=== PATIENT | female | born 2000 ===

== ENCOUNTER 2022-12-16 00:33 | Emergency (ER) | payer SELFPAY ==
[~2022-12-16] VITALS: Ht 165 cm; Wt 55.8 kg
--- NOTE | 2022-12-16 01:01 | ED Abdominal Pain ---
General Chief Complaint: Abdominal/GI Problems Stated Complaint: RT SIDE PAIN,VOMITING Nursing Triage Note: c/o sharp intermittant right sided abdominal pain x1hr Source of Information: Patient Exam Limitations: No Limitations History of Present Illness Date Seen by Provider: Dec 16, 2022 Time Seen by Provider: 01:01 Initial Comments Patient is a 22-year-old female who presents to the emergency room with a chief complaint of severe right-sided abdominal pain. Patient states its been going on for about an hour, described as sharp. She states nothing makes it any better or any worse. She denies fevers, chills. She is short of breath due to her "anxiety". No productive cough. No diarrhea, black or bloody stools. No dysuria, urgency or frequency. No abnormal vaginal discharge. Last menstrual cycle was sometime in November. She is on control and does not believe there is any way she could be . She has never had pain like this before. No prior abdominal surgeries. She has not taken anything for the pain. On initial examination of the patient she is curled up on her left side in a position, crying holding her right side. Timing/Duration: 1 Hour Severity/Quality: Severe, Sharp Location: Other (Right-sided abdominal pain) Radiation: No Radiation Activities at Onset: None Associated Symptoms: Nausea/Vomiting Allergies and Home Medications Allergies Coded Allergies: No Known Drug Allergies (Unverified , 12/16/22) Patient Home Medication List Home Medication List Reviewed: Yes No Active Prescriptions or Reported Meds Review of Systems Review of Systems Constitutional: see HPI EENTM: No Symptoms Reported Respiratory: No Symptoms Reported Cardiovascular: No Symptoms Reported Gastrointestinal: Abdominal Pain, Nausea Genitourinary: No Symptoms Reported Musculoskeletal: no symptoms reported Skin: no symptoms reported Psychiatric/Neurological: Anxiety All Other Systems Reviewed Negative Unless Noted: Yes Past Cjlfmeo-Tuajop-Lboqfk Hx Patient Social History Tobacco Use?: No Substance use?: Yes Substance type: Marijuana Alcohol Use?: No Pt feels they are or have been: No Immunizations Up To Date First/Initial COVID19 Vaccinat: x2 Past Medical History Surgery/Hospitalization HX: denies Last Menstrual Period: Dec 01, 2022 Physical Exam Vital Signs Vital Signs - First Documented 12/16/22 00:40 Temp 36.7 Pulse 114 Resp 22 B/P (MAP) 130/92 (105) Pulse Ox 100 O2 Delivery Room Air Capillary Refill : Height/Weight/BMI Height: '" Weight: lbs. oz. kg; 20.00 BMI Method: General Appearance: WD/WN, moderate distress, other (Crying) HEENT: PERRL/EOMI Respiratory: lungs clear, normal breath sounds, no respiratory distress, no accessory muscle use Cardiovascular: regular rate, rhythm Gastrointestinal: normal bowel sounds, soft, tenderness (Right upper and lower quadrant, left lower quadrant) Neurologic/Psychiatric: alert, oriented x 3, other (Anxious, crying) Skin: normal color, warm/dry Progress/Results/Core Measures Results/Orders Lab Results Laboratory Tests Test 12/16/22 00:45 12/16/22 01:20 Range/Units White Blood Count 10.4 4.3-11.0 10^3/uL Red Blood Count 4.58 3.80-5.11 10^6/uL Hemoglobin 12.5 11.5-16.0 g/dL Hematocrit 39 35-52 % Mean Corpuscular Volume 85 80-99 fL Mean Corpuscular Hemoglobin 27 25-34 pg Mean Corpuscular Hemoglobin Concent 32 32-36 g/dL Red Cell Distribution Width 14.4 10.0-14.5 % Platelet Count 293 130-400 10^3/uL Mean Platelet Volume 12.1 9.0-12.2 fL Immature Granulocyte % (Auto) 0 % Neutrophils (%) (Auto) 49 42-75 % Lymphocytes (%) (Auto) 42 12-44 % Monocytes (%) (Auto) 7 0-12 % Eosinophils (%) (Auto) 2 0-10 % Basophils (%) (Auto) 1 0-10 % Neutrophils # (Auto) 5.1 1.8-7.8 10^3/uL Lymphocytes # (Auto) 4.4 H 1.0-4.0 10^3/uL Monocytes # (Auto) 0.7 0.0-1.0 10^3/uL Eosinophils # (Auto) 0.2 0.0-0.3 10^3/uL Basophils # (Auto) 0.1 0.0-0.1 10^3/uL Immature Granulocyte # (Auto) 0.0 0.0-0.1 10^3/uL Sodium Level 144 135-145 MMOL/L Potassium Level 3.3 L 3.6-5.0 MMOL/L Chloride Level 112 H 98-107 MMOL/L Carbon Dioxide Level 19 L 21-32 MMOL/L Anion Gap 13 5-14 MMOL/L Blood Urea Nitrogen 8 7-18 MG/DL Creatinine 0.66 0.60-1.30 MG/DL Estimat Glomerular Filtration Rate 127 BUN/Creatinine Ratio 12 Glucose Level 115 H 70-105 MG/DL Calcium Level 8.9 8.5-10.1 MG/DL Corrected Calcium 8.7 8.5-10.1 MG/DL Total Bilirubin 0.5 0.1-1.0 MG/DL Aspartate Amino Transf (AST/SGOT) 10 5-34 U/L Alanine Aminotransferase (ALT/SGPT) 6 0-55 U/L Alkaline Phosphatase 102 40-136 U/L Total Protein 7.4 6.4-8.2 GM/DL Albumin 4.2 3.2-4.5 GM/DL Lipase 42 8-78 U/L Serum Test, Qualitative NEGATIVE NEGATIVE Serum Alcohol 92 H <10 MG/DL Urine Color YELLOW Urine Clarity CLEAR Urine pH 6.5 5-9 Urine Specific [place] 1.015 L 1.016-1.022 Urine Protein NEGATIVE NEGATIVE Urine Glucose (UA) NEGATIVE NEGATIVE Urine Ketones NEGATIVE NEGATIVE Urine Nitrite NEGATIVE NEGATIVE Urine Bilirubin NEGATIVE NEGATIVE Urine Urobilinogen 0.2 < = 1.0 MG/DL Urine Leukocyte Esterase TRACE H NEGATIVE Urine RBC (Auto) NEGATIVE NEGATIVE Urine RBC NONE /HPF Urine WBC RARE /HPF Urine Squamous Epithelial Cells 0-2 /HPF Urine Crystals NONE /LPF Urine Bacteria NEGATIVE /HPF Urine Casts NONE /LPF Urine Mucus NEGATIVE /LPF Urine Culture Indicated NO My Orders Orders - BOBBY FENG MD Ed Iv/Invasive Line Start (12/16/22 01:05) Cbc With Automated Diff (12/16/22 01:05) Comprehensive Metabolic Panel (12/16/22 01:05) Lipase (12/16/22 01:05) Ua Culture If Indicated (12/16/22 01:05) Hcg,Qualitative Serum (12/16/22 01:05) Ns Iv 1000 Ml (Sodium Chloride 0.9%) (12/16/22 01:05) Ketorolac Injection (Toradol Injection) (12/16/22 01:15) Ondansetron Injection (Zofran Injectio (12/16/22 01:15) Ct Abd/Pelvis Wo(Kidney Stone) (12/16/22 02:17) Alcohol (12/16/22 03:19) Pantoprazole Injection (Protonix Injecti (12/16/22 03:30) Hyoscyamine Sl Tablet (Levsin Sl Tablet) (12/16/22 03:30) Rx-Ondansetron Po (Rx-Zofran Po) (12/16/22 03:30) Medications Given in ED Current Medications Medications Dose Ordered Sig/Dudley Route Start Time Stop Time Status Last Admin Dose Admin Ketorolac Tromethamine 15 mg ONCE ONCE IVP 12/16/22 01:15 12/16/22 01:16 DC 12/16/22 01:15 15 MG Ondansetron HCl 8 mg ONCE ONCE IVP 12/16/22 01:15 12/16/22 01:16 DC 12/16/22 01:15 8 MG Vital Signs/I&O 12/16/22 12/16/22 00:40 03:36 Temp 36.7 36.5 Pulse 114 75 Resp 22 16 B/P (MAP) 130/92 (105) 95/65 Pulse Ox 100 98 O2 Delivery Room Air Room Air Blood Pressure Mean: 105 Progress Progress Note #1: Time: 02:17 Progress Note pain improved. re-examined, tenderness in the right flank with voluntary guarding; will CT renal stone protocol Progress Note #2: Time: 03:24 Progress Note patient re-evaluated; pain a "6". Friend at bedside states she had some "cayman violetta's" alcohol tonight, pain started afterward. Will add some protonix and levsin. CT shows no evidence of stone. Likely gastritis due to the alcohol intake tonight. Labs reviewed - CBC is normal, CHem 12 normal. UA normal, test normal. etoh pending. Diagnostic Imaging Diagonstic Imaging: CT Comments CT abdomen pelvis renal stone protocol, independently interpreted by me, no acute findings, no kidney stones Departure Impression Primary Impression: Abdominal pain Qualified Codes: R10.9 - Unspecified abdominal pain Additional Impression: Gastritis Qualified Codes: K29.20 - Alcoholic gastritis without bleeding Disposition: HOME, SELF-CARE Condition: Improved Departure-Patient Inst. Decision time for Depature: 03:28 Referrals: NO,LOCAL PHYSICIAN (PCP/Family) Primary Care Physician Patient Instructions: Gastritis ED Add. Discharge Instructions: You should get some generic pepcid from [facility], take one tablet twice a day for the next week. [place] diet tomorrow and then Saturday slowly advance your diet as tolerated. Zofran, (nausea medication) take one every 8 hours as needed for upset stomach. If you develop a fever, worsening pain with vomiting, please return to the Emergency Department for re-evaluation. Follow up with your primary care doctor as needed. Scripts No Active Prescriptions or Reported Meds BOBBY FENG MD Dec 16, 2022 01:01
[2022-12-16] MEDS ORDERED: NS IV 1000 ML 1,000 ML IV STA (01:05)
[2022-12-16] MEDS ORDERED: ONDANSETRON 4 MG/2 ML (SDV) Z0FRAN IVP ONE (01:15)
[2022-12-16] MEDS ORDERED: KETOROLAC 15 MG/ML VIAL IVP ONE (01:15)
[2022-12-16 01:25] LABS: BASOPHILS # (AUTO) 0.1 10^3/uL (0.0-0.1); BASOPHILS % (AUTO) 1 % (0-10); EOSINOPHILS # (AUTO) 0.2 10^3/uL (0.0-0.3); EOSINOPHILS % (AUTO) 2 % (0-10); HEMATOCRIT 39 % (35-52); HEMOGLOBIN 12.5 g/dL (11.5-16.0); LYMPHOCYTES # (AUTO) 4.4 10^3/uL (1.0-4.0); LYMPHOCYTES % (AUTO) 42 % (12-44); MEAN CORPUSCULAR HEMOGLOBIN 27 pg (25-34); MEAN CORPUSCULAR HGB CONC 32 g/dL (32-36); MEAN CORPUSCULAR VOLUME 85 fL (80-99); MEAN PLATELET VOLUME 12.1 fL (9.0-12.2); MONOCYTES # (AUTO) 0.7 10^3/uL (0.0-1.0); MONOCYTES % (AUTO) 7 % (0-12); NEUTROPHILS # (AUTO) 5.1 10^3/uL (1.8-7.8); NEUTROPHILS % (AUTO) 49 % (42-75); PLATELET COUNT 293 10^3/uL (130-400); WHITE BLOOD COUNT 10.4 10^3/uL (4.3-11.0)
[2022-12-16 01:29] LABS: ALBUMIN 4.2 GM/DL (3.2-4.5); POTASSIUM 3.3 MMOL/L (3.6-5.0)
[2022-12-16 01:31] LABS: CALCIUM 8.9 MG/DL (8.5-10.1)
[2022-12-16 01:32] LABS: TOTAL PROTEIN 7.4 GM/DL (6.4-8.2)
[2022-12-16 01:34] LABS: BILIRUBIN,TOTAL 0.5 MG/DL (0.1-1.0)
[2022-12-16 01:35] LABS: CREATININE SERUM 0.66 MG/DL (0.60-1.30)
[2022-12-16 01:35] LABS: BILIRUBIN,URINE NEGATIVE (NEGATIVE); CLARITY,URINE CLEAR; COLOR,URINE YELLOW; GLUCOSE, URINE (UA) NEGATIVE (NEGATIVE); KETONES,URINE NEGATIVE (NEGATIVE); LEUKOCYTE ESTERASE ,URINE TRACE (NEGATIVE); NITRITE,URINE NEGATIVE (NEGATIVE); PH,URINE 6.5 (5-9); PROTEIN,URINE NEGATIVE (NEGATIVE)
[2022-12-16 01:47] LABS: BACTERIA,URINE NEGATIVE /HPF; SQUAMOUS EPITHELIAL CELL,UR 0-2 /HPF; WBC,URINE RARE /HPF
[2022-12-16] MEDS ORDERED: RX-ONDANSETRON 4 MG ODT (ZOFRAN) PPK #4 PO STA (03:30)
[2022-12-16] MEDS ORDERED: HYOSCYAMINE 0.125 MG (LEVSIN) TAB PO ONE (03:30)
[2022-12-16] MEDS ORDERED: PANTOPRAZOLE 40 MG (PROTONIX) VIAL IV ONE (03:30)
[2022-12-16 03:36] VITALS: BP 95/65
--- NOTE | 2022-12-16 06:17 | Diagnostic Imaging Report ---
EXAMINATION: CT abdomen and pelvis without contrast. TECHNIQUE: Multiple contiguous axial images were obtained through the abdomen and pelvis without the use of intravenous contrast. All CT scans use one or more of the following dose optimizing techniques: automated exposure control, MA and/or KvP adjustment based on patient size and exam type or iterative reconstruction. HISTORY: Flank pain, kidney stone suspected COMPARISON: None available. FINDINGS: Lung bases: The lung bases are clear. Solid organs: The liver is normal. The gallbladder is normal. There is no biliary ductal dilation. Pancreas is normal. Spleen is normal. Adrenal glands are normal. The kidneys are normal without visualized calculus or hydronephrosis. Bowel: The stomach and small bowel are normal without obstruction. The colon is normal. There are no secondary signs of acute appendicitis. Peritoneum: There is no intraperitoneal free fluid or free air. No suspicious lymphadenopathy. Vasculature: Normal without aneurysm. Musculoskeletal: No suspicious osseous lesion or compression fracture. Pelvis: An IUD is present within the uterus with the limb extending to the surface of the myometrium. The urinary bladder is normal. IMPRESSION: 1. No visualized renal calculus or hydronephrosis. 2. No other acute abnormality in the abdomen or pelvis. 3. Possible abnormal positioning of the IUD and possible penetration of the limb through the myometrium. Consider correlation with pelvic ultrasound. 4. Agree with preliminary interpretation. Dictated by: Dictated on workstation # [id number]
== END 2022-12-16 03:38 | disposition home or self-care (01) ==
LOC: ER 00:37
DX: K29.70 Gastritis, unspecified, without bleeding (principal)
CPT/HCPCS: 74176; 80053; 81000; 83690; 84703; 85025; 99284; G0480; 36415; 80320

== ENCOUNTER 2023-05-02 10:00 | Emergency (ER) | payer OTHER ==
[~2023-05-02] VITALS: Ht 167 cm; Wt 63.0 kg
--- NOTE | 2023-05-02 10:24 | ED Lower Extremity ---
General Chief Complaint: Lower Extremity Stated Complaint: LT FOOT INJ | STRUCK BY PIECE OF METAL | Nursing Triage Note: PT TO RM 9 BY WITH C/O L FOOT PAIN AFTER A METAL FIXTURE FELL ON FOOT AT WORK Source: patient Exam Limitations: no limitations History of Present Illness Date Seen by Provider: May 02, 2023 Time Seen by Provider: 10:14 Initial Comments 22-year-old female presents for left foot injury sustained at work. She states this will be a work comp injury. 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 She has pain to the medial aspect of her left foot at the area of bruising and swelling. She has been able to bear weight but states it hurts to do so. No other injuries. All other systems reviewed and negative except documented per HPI. Voice recognition software was used to help create this chart Allergies and Home Medications Allergies Coded Allergies: No Known Drug Allergies (Unverified , 12/16/22) Patient Home Medication List Home Medication List Reviewed: Yes No Active Prescriptions or Reported Meds Review of Systems Constitutional: see HPI Past Upatkrs-Xvvtlq-Pdfgxg Hx Patient Social History Tobacco Use?: No Use of E-Cig and/or Vaping dev: Yes E-Cig or Vaping type used: Nicotine Substance use?: Yes Substance type: Marijuana Alcohol Use?: No Pt feels they are or have been: No Immunizations Up To Date First/Initial COVID19 Vaccinat: x2 Second COVID19 Vaccination Rajesh: x2 Third COVID19 Vaccination Date: x2 Past Medical History Surgery/Hospitalization HX: denies Last Menstrual Period: Apr 08, 2023 Physical Exam Vital Signs Vital Signs - First Documented 05/02/23 10:08 Temp 36.6 Pulse 80 Resp 17 B/P (MAP) 120/85 (97) Pulse Ox 99 O2 Delivery Room Air Capillary Refill : Height, Weight, BMI Height: '" Weight: lbs. oz. kg; 22.00 BMI Method: General Appearance: WD/WN, no apparent distress Knees: bilateral knee non-tender, bilateral knee normal inspection, bilateral knee normal range of motion Ankles: bilateral ankle non-tender, bilateral ankle normal inspection, bilateral ankle normal range of motion Feet: left foot other (Bruising and very mild swelling at a focal point to the medial aspect of her left foot on the extensor surface. Neurovascular and se nsory intact.) Skin: ecchymosis Progress/Results/Core Measures Results/Orders My Orders Orders - ARVIN SHELL DO Foot, Left, 3 Views (05/02/23 10:20) Vital Signs/I&O 05/02/23 10:08 Temp 36.6 Pulse 80 Resp 17 B/P (MAP) 120/85 (97) Pulse Ox 99 O2 Delivery Room Air Blood Pressure Mean: 97 Departure Communication (Admissions) Patient is hemodynamically stable neurovascular and sensory intact. I have independently reviewed x-rays and do not see any acute fracture, dislocation or soft tissue abnormality. Impression Primary Impression: Contusion of left foot Qualified Codes: S90.32XA - Contusion of left foot, initial encounter Disposition: HOME, SELF-CARE Condition: Stable Departure-Patient Inst. Referrals: NO,LOCAL PHYSICIAN (PCP/Family) Primary Care Physician Patient Instructions: Minor Contusion ED Add. Discharge Instructions: Use ibuprofen and Tylenol as needed for pain. bear weight as tolerated. Return to the emergency department for any severe concerns All discharge instructions reviewed with patient and/or family. Voiced understanding. Scripts No Active Prescriptions or Reported Meds ARVIN SHELL DO May 02, 2023 10:23
--- NOTE | 2023-05-02 10:41 | Diagnostic Imaging Report ---
INDICATION: Left foot pain after a metal fixtures fell on foot at work. TECHNIQUE: 3 views of the left foot CORRELATION STUDY: None FINDINGS: The osseous structures of the foot are intact. Joint spaces are maintained. Alignment anatomic. Soft tissues appearing unremarkable. IMPRESSION: 1. Negative for acute findings of the foot. Dictated by: Dictated on workstation # [id number]
[2023-05-02 10:56] VITALS: BP 120/85
== END 2023-05-02 10:58 | disposition home or self-care (01) ==
LOC: EDUNIT# 10:00 → ER 10:03
DX: S90.32XA Contusion of left foot, initial encounter (principal); F17.290 Nicotine dependence, other tobacco product, uncomplicated; W20.8XXA Other cause of strike by thrown, projected or falling object, initial encounter; Y99.0 Civilian activity done for income or pay
CPT/HCPCS: 73630

== ENCOUNTER 2023-05-23 19:47 | Emergency (ER) | payer SELFPAY ==
[~2023-05-23] VITALS: Ht 172 cm; Wt 74.0 kg
[2023-05-23] MEDS ORDERED: NS IV 1000 ML 1,000 ML IV SCH (20:15)
[2023-05-23 20:19] LABS: BASOPHILS % (AUTO) 1 % (0-10); EOSINOPHILS # (AUTO) 0.1 10^3/uL (0.0-0.3); EOSINOPHILS % (AUTO) 1 % (0-10); HEMATOCRIT 37 % (35-52); HEMOGLOBIN 11.6 g/dL (11.5-16.0); LYMPHOCYTES % (AUTO) 12 % (12-44); MEAN CORPUSCULAR HEMOGLOBIN 27 pg (25-34); MEAN CORPUSCULAR HGB CONC 31 g/dL (32-36); MEAN CORPUSCULAR VOLUME 85 fL (80-99); MEAN PLATELET VOLUME 11.8 fL (9.0-12.2); MONOCYTES # (AUTO) 0.9 10^3/uL (0.0-1.0); MONOCYTES % (AUTO) 11 % (0-12); NEUTROPHILS # (AUTO) 6.4 10^3/uL (1.8-7.8); NEUTROPHILS % (AUTO) 75 % (42-75); PLATELET COUNT 276 10^3/uL (130-400); WHITE BLOOD COUNT 8.5 10^3/uL (4.3-11.0)
--- NOTE | 2023-05-23 20:20 | ED General ---
General Stated Complaint: FAINTING, VOMITING, COUGH History of Present Illness Date Seen by Provider: May 23, 2023 Time Seen by Provider: 20:05 Initial Comments 22 year old female with weakness over the last 3-4 hours. She worked outside, picking up shingles all day. Reports eating but vomited 1-2 times. No nausea now. She became weak and required a friend to help her walk. no falls. She denies history of DM, cardiac or respiratory problems. Reports feeling warm earlier today but did not check her temperature. She vapes daily and uses marijuana approximately once a week, she got off work at 1800 and drank alcohol prior to coming to ED. She reports taking Tylenol at noon today.She reports having COVID approximately 3 years ago she has received the vaccines and one booster. Timing/Duration: 4-6 Hours Severity: Mild Associated Systoms: No Chest Pain; Cough; No Diaphoresis; Fever/Chills, Headaches, Loss of Appetite, Malaise, Nausea/Vomiting; No Rash, No Seizure, No Shortness of Air, No Syncope; Weakness (CHELLY ONEIL) Allergies and Home Medications Allergies Coded Allergies: No Known Drug Allergies (Unverified , 12/16/22) Patient Home Medication List Home Medication List Reviewed: Yes (CHELLY ONEIL) No Active Prescriptions or Reported Meds Review of Systems Review of Systems Constitutional: see HPI, malaise, weakness EENTM: see HPI, no symptoms reported Respiratory: see HPI, cough; No short of breath Cardiovascular: no symptoms reported, see HPI Gastrointestinal: see HPI; No abdominal pain, No nausea; vomiting Genitourinary: no symptoms reported, see HPI Musculoskeletal: no symptoms reported, see HPI (CHELLY ONEIL) All Other Systems Reviewed Negative Unless Noted: Yes (CHELLY ONEIL) Past Kklrxjm-Ugjmgp-Labsot Hx Immunizations Up To Date First/Initial COVID19 Vaccinat: x2 Second COVID19 Vaccination Rajesh: x2 Third COVID19 Vaccination Date: x2 (CHELLY ONEIL) Past Medical History Surgery/Hospitalization HX: denies (CHELLY ONEIL) Family Medical History Reviewed Nursing Family Hx (CHELLY ONEIL) Physical Exam Vital Signs Vital Signs - First Documented 05/23/23 20:00 Temp 37.6 Pulse 118 Resp 20 B/P (MAP) 115/84 (94) Pulse Ox 100 O2 Delivery Room Air (DANIELLA,EVA K DO) Vital Signs Capillary Refill : (CHELLY ONEIL) Height, Weight, BMI Height: '" Weight: lbs. oz. kg; 22.00 BMI Method: General Appearance: Mild Distress HEENT: PERRL/EOMI, TMs Normal, Normal ENT Inspection, Pharynx Normal, Moist M ucous Membranes Neck: Full Range of Motion, Normal Inspection, Non Tender, Supple Respiratory: Chest Non Tender, Lungs Clear, Normal Breath Sounds Cardiovascular: Regular Rate, Rhythm, No Edema, No Murmur, Normal Peripheral Pulses Gastrointestinal: Normal Bowel Sounds, Non Tender, Soft Extremity: Normal Capillary Refill, Normal Inspection, Normal Range of Motion, No Pedal Edema Neurologic/Psychiatric: Alert, Oriented x3, No Motor/Sensory Deficits, Normal Mood/Affect Skin: Normal Color, Warm/Dry; No Cool, No Diaphoresis (CHELLY ONEIL) Progress/Results/Core Measures Suspected Sepsis SIRS Temperature: Pulse: Respiratory Rate: Laboratory Tests 05/23/23 20:10: White Blood Count 8.5 Blood Pressure / Mean: Laboratory Tests 05/23/23 20:10: Creatinine 0.75, Platelet Count 276, Total Bilirubin 0.6 (CHELLY ONEIL) Results/Orders Lab Results Laboratory Tests Test 05/23/23 20:10 05/23/23 20:11 05/23/23 20:43 Range/Units White Blood Count 8.5 4.3-11.0 10^3/uL Red Blood Count 4.36 3.80-5.11 10^6/uL Hemoglobin 11.6 11.5-16.0 g/dL Hematocrit 37 35-52 % Mean Corpuscular Volume 85 80-99 fL Mean Corpuscular Hemoglobin 27 25-34 pg Mean Corpuscular Hemoglobin Concent 31 L 32-36 g/dL Red Cell Distribution Width 13.8 10.0-14.5 % Platelet Count 276 130-400 10^3/uL Mean Platelet Volume 11.8 9.0-12.2 fL Immature Granulocyte % (Auto) 1 % Neutrophils (%) (Auto) 75 42-75 % Lymphocytes (%) (Auto) 12 12-44 % Monocytes (%) (Auto) 11 0-12 % Eosinophils (%) (Auto) 1 0-10 % Basophils (%) (Auto) 1 0-10 % Neutrophils # (Auto) 6.4 1.8-7.8 10^3/uL Lymphocytes # (Auto) 1.0 1.0-4.0 10^3/uL Monocytes # (Auto) 0.9 0.0-1.0 10^3/uL Eosinophils # (Auto) 0.1 0.0-0.3 10^3/uL Basophils # (Auto) 0.0 0.0-0.1 10^3/uL Immature Granulocyte # (Auto) 0.0 0.0-0.1 10^3/uL Sodium Level 141 135-145 MMOL/L Potassium Level 3.3 L 3.6-5.0 MMOL/L Chloride Level 108 H 98-107 MMOL/L Carbon Dioxide Level 22 21-32 MMOL/L Anion Gap 11 5-14 MMOL/L Blood Urea Nitrogen 12 7-18 MG/DL Creatinine 0.75 0.60-1.30 MG/DL Estimat Glomerular Filtration Rate 115 BUN/Creatinine Ratio 16 Glucose Level 93 70-105 MG/DL Calcium Level 9.0 8.5-10.1 MG/DL Corrected Calcium 8.8 8.5-10.1 MG/DL Total Bilirubin 0.6 0.1-1.0 MG/DL Aspartate Amino Transf (AST/SGOT) 14 5-34 U/L Alanine Aminotransferase (ALT/SGPT) 13 0-55 U/L Alkaline Phosphatase 117 40-136 U/L Total Protein 7.4 6.4-8.2 GM/DL Albumin 4.3 3.2-4.5 GM/DL Serum Alcohol 25 H <10 MG/DL Influenza Type A (RT-PCR) Not Detected Not Detecte Influenza Type B (RT-PCR) Not Detected Not Detecte SARS-CoV-2 RNA (RT-PCR) Detected H Not Detecte Glucometer 90 70-110 MG/DL Urine Color YELLOW Urine Clarity CLEAR Urine pH 7.0 5-9 Urine Specific [place] 1.020 1.016-1.022 Urine Protein NEGATIVE NEGATIVE Urine Glucose (UA) NEGATIVE NEGATIVE Urine Ketones NEGATIVE NEGATIVE Urine Nitrite NEGATIVE NEGATIVE Urine Bilirubin NEGATIVE NEGATIVE Urine Urobilinogen 0.2 < = 1.0 MG/DL Urine Leukocyte Esterase TRACE H NEGATIVE Urine RBC (Auto) NEGATIVE NEGATIVE Urine RBC 0-2 /HPF Urine WBC 2-5 /HPF Urine Squamous Epithelial Cells 25-50 H /HPF Urine Crystals PRESENT H /LPF Urine Amorphous Sediment RARE PRITESH URATES H /LPF Urine Bacteria TRACE /HPF Urine Casts NONE /LPF Urine Mucus SMALL H /LPF Urine Culture Indicated NO Urine Opiates Screen NEGATIVE NEGATIVE Urine Oxycodone Screen NEGATIVE NEGATIVE Urine Methadone Screen NEGATIVE NEGATIVE Urine Propoxyphene Screen NEGATIVE NEGATIVE Urine Barbiturates Screen NEGATIVE NEGATIVE Ur Tricyclic Antidepressants Screen NEGATIVE NEGATIVE Urine Phencyclidine Screen NEGATIVE NEGATIVE Urine Amphetamines Screen NEGATIVE NEGATIVE Urine Methamphetamines Screen NEGATIVE NEGATIVE Urine Benzodiazepines Screen NEGATIVE NEGATIVE Urine Cocaine Screen NEGATIVE NEGATIVE Urine Cannabinoids Screen POSITIVE H NEGATIVE (DANIELLAEVA Jens DO) Vital Signs/I&O 05/23/23 05/23/23 20:00 21:35 Temp 37.6 Pulse 118 111 Resp 20 18 B/P (MAP) 115/84 (94) 119/91 Pulse Ox 100 100 O2 Delivery Room Air Room Air (LANA BREWERA Jens BEST) Vital Signs/I&O Capillary Refill : (CHELLY ONEIL) Progress Note : Time: 20:05 Progress Note Patient assessed, Accu-Chek 90. Vital signs stable, slight tachycardia 105-115. Afebrile. Will assess labs, UA, NS 1 L per IV, Covid and Flu. Mask provided and instructed to wear. 2100 IVF infusing, COVID +, patient notified.K+ 3.3, will give K+ 10 mEq PO. 2120 will give Ibuprofen 600 mg PO and discharge to home.COVID precautions and supportive care discussed with the patient. All questions answered. (CHELLY ONEIL) Departure Impression Primary Impression: Weakness Additional Impressions: Cough Qualified Codes: R05.1 - Acute cough COVID-19 Disposition: HOME, SELF-CARE Condition: Improved Departure-Patient Inst. Decision time for Depature: 21:05 (CHELLY ONEIL) Referrals: [facility] [place] PHYSICIAN (PCP) Primary Care Physician Patient Instructions: COVID-19 (DC) Add. Discharge Instructions: Drink 16 oz of Water every 2 hours, while awake. Walk for 5 to 10 minutes every hour while awake and take deep breaths. Take over the counter decongestants, as needed. Take a multivitamin with vitamin C, D and zinc. Call your primary care provider if your symptoms are not improving or worsen. Sleep on your stomach. Alternate between Tylenol 650 mg and ibuprofen 600 mg every 4 hours as needed for fever or general discomfort Return to emergency department for new, urgent healthcare needs. Scripts No Active Prescriptions or Reported Meds Work/School Note: Work Release Form Date Seen in the Emergency Department: May 23, 2023 Return to Work: May 27, 2023 Other Restrictions Listed Below: Wear mask for next 10 days, when around others. ATTENDING PHYSICIAN NOTE: I WAS PHYSICALLY PRESENT ER PHYSICIAN, BUT I WAS NOT INVOLVED IN ANY DECISION MAKING OR ANY CARE OF THIS PATIENT AND I AM NOT COLLABORATING PHYSICIAN (EVA BREWER DO) CHELLY ONEIL May 23, 2023 20:20 EVA BREWER DO May 25, 2023 03:22
[2023-05-23 20:38] LABS: ALBUMIN 4.3 GM/DL (3.2-4.5); BILIRUBIN,TOTAL 0.6 MG/DL (0.1-1.0); CREATININE SERUM 0.75 MG/DL (0.60-1.30); POTASSIUM 3.3 MMOL/L (3.6-5.0); TOTAL PROTEIN 7.4 GM/DL (6.4-8.2)
[2023-05-23 21:11] LABS: CLARITY,URINE CLEAR; COLOR,URINE YELLOW; GLUCOSE, URINE (UA) NEGATIVE (NEGATIVE); KETONES,URINE NEGATIVE (NEGATIVE); PROTEIN,URINE NEGATIVE (NEGATIVE)
[2023-05-23 21:12] LABS: AMORPHOUS SEDIMENT,UR RARE AMOR URATES /LPF; BACTERIA,URINE TRACE /HPF; BILIRUBIN,URINE NEGATIVE (NEGATIVE); LEUKOCYTE ESTERASE ,URINE TRACE (NEGATIVE); NITRITE,URINE NEGATIVE (NEGATIVE); RBC,URINE 0-2 /HPF; SQUAMOUS EPITHELIAL CELL,UR 25-50 /HPF
[2023-05-23 21:14] LABS: AMPHETAMINE SCREEN, URINE NEGATIVE (NEGATIVE); BARBITURATE SCREEN URINE NEGATIVE (NEGATIVE); CANNABINOID SCREEN, URINE POSITIVE (NEGATIVE); COCAINE SCREEN URINE NEGATIVE (NEGATIVE); METHADONE STAT NEGATIVE (NEGATIVE); OPIATE SCREEN URINE NEGATIVE (NEGATIVE); OXYCODONE STAT NEGATIVE (NEGATIVE); PROPOXYPHENE STAT NEGATIVE (NEGATIVE); TRICYCLIC ANTIDEPRESSANTS SCRE NEGATIVE (NEGATIVE)
[2023-05-23] MEDS ORDERED: IBUPROFEN 200 MG TABLET PO STA (21:23)
[2023-05-23] MEDS ORDERED: POTASSIUM CHLORIDE 10 MEQ TABLET PO STA (21:33)
[2023-05-23] MEDS ORDERED: POTASSIUM CHLORIDE 10 MEQ TABLET PO ONE (21:34)
[2023-05-23 21:35] VITALS: BP 119/91
== END 2023-05-23 21:35 | disposition home or self-care (01) ==
LOC: EDUNIT# 19:47 → ER 19:52
DX: U07.1 COVID-19 (principal); R53.1 Weakness; R05.9 Cough, unspecified; R11.2 Nausea with vomiting, unspecified; F17.290 Nicotine dependence, other tobacco product, uncomplicated
CPT/HCPCS: 80053; 80306; 81000; 82947; 84703; 85025; 87636; 99284; G0480; 36415; 80320